=== PATIENT | female | born 1970 ===

== ENCOUNTER 2017-07-28 07:33 | Outpatient (CLI) | payer OTHER ==
[~2017-07-28 07:33] MED LIST: MOTRIN800 MG PO
== END 2017-07-28 07:40 | disposition home or self-care (01) ==
LOC: SONOGRAMA 07:33
DX: E04.1 Nontoxic single thyroid nodule (principal)

== ENCOUNTER 2020-04-21 08:54 | Outpatient (CLI) | payer OTHER | END 2020-04-21 08:59 | disposition home or self-care (01) | LOC: SONOGRAMA 08:54 | PROVIDERS: ATTEND Pathology Anatomic Pathology & Clinical Pathology | DX: D44.0 Neoplasm of uncertain behavior of thyroid gland (principal) ==